=== PATIENT | female | born 1980 | race Caucasian/White ===

== ENCOUNTER → 2016-09-04 | Outpatient (CLI) | payer OTHER ==
--- NOTE | 2016-09-04 14:35 | US ---
September 04, [address] Ozuna, Thank you for allowing us to see your patient regarding viability/New Ob. As you know she is a 35 ye ar-old 2, para 0010. Her due date is 04/16/17 which is based on LMP c/w ultrasound today . H er current gestational age based on this dating is 8 weeks 0 days. She is well known to me from her last that was complicated by severe early IUGR and TOP for this. Etiology was pursued including karyotype, APLS, TORCH and all work up negative and thought to be placental in etiology. She is on 81 mg ASA in this . She also has borderline CHTN, no meds and reports home BPs of 117/74-124/98. She reports occasional exposure to shingles and thus we agreed to check Varicella titer. She reports 3-4 days of spotting without pain and is RH+. U/S: TA Viable IUP with CRL of 13.5 cm c/w 7w5d FHT 153 Yolk sac 2.7 mm RIgtht ovary seen with CL Left ovary seen No subchorionic hemorrhage noted. Impression: This is a 35 year-old, 2, para 0010 at 8 weeks, 0 days gestation. 1. SIUP with new finalized NILO of 04/16/17. 2. Prior severe IUGR- thought to be placental related, on ASA 3. Spotting- reviewed pelvic precautions, RH + 4. CHTN -off meds, check UPC, CMP with New Ob labs 5. Varicella - check immunity 6. New ob- scheduled at [facility] 09/20 11 am MFM 7. First trimester u/s- 2/3 2pm with NIPT 8. 16 week growth/anatomy [place] 2pm 9. Reviewed stress relieving tips. Thank you for allowing me to see your patient. Approximately 15 minutes was spent with the patient a nd 15 was spent discussing her issues. Audrey Klein MD Diagnosis Division of Maternal Medicine Department of Obstetrics and Gynecology [facility]
--- NOTE | 2016-09-04 17:10 | US ---
First Trimester Obstetrical Sonography Clinical History: 35-year-old female with advanced maternal age with a prior complicated by severe IUGR with termination of , presenting for confirmation of intrauterine viability. Technique: A curvilinear 5 MHz transducer was used to sonographically evaluate the pelvis using a ful l urinary bladder as a window. M-mode Doppler is used, and a cine clip was acquired at the level of t he gestational sac and also to confirm heart rate. Comparison Study: None. LMP: Not provided. Findings: There is a single viable intrauterine gestation with a crown-rump length of 13 mm, correspo nding to an age of 7 weeks 5 days and an estimated date of delivery of April 18, 2017. There is a 2 .7 mm yolk sac. The heart rate is 163 beats per minute. There is no subchorionic hemorrhage or focal fibroid. The maternal right ovary measures 2.5 x 2.4 x 2.6 cm and contains a 1.5 x 1.6 x 1.7 cm corpu s luteum cyst. The left ovary measures 2.1 x 2.5 x 3.2 cm. Impression: There is a single viable intrauterine gestation with an estimated age of 7 weeks 5 days a nd an NILO of April 18, 2017. Please refer to Dr. Klein's separate assessments and specific recommendations for follow up in this patient with advanced maternal age.
== END ==
LOC: FIMAGING 12:18
PROVIDERS: ATTEND Obstetrics & Gynecology
DX: Z36 Encounter for antenatal screening of mother (principal); O09.521 Supervision of elderly multigravida, first trimester; Z3A.01 Less than 8 weeks gestation of pregnancy; O16.1 Unspecified maternal hypertension, first trimester